=== PATIENT | female | born 1980 | race Two or more races ===

== ENCOUNTER 2020-07-28 17:42 | Emergency (ER) | payer MEDICAID ==
[~2020-07-28] VITALS: Ht 162.6 cm; Wt 54.4 kg
--- NOTE | 2020-07-28 18:10 | NUR ---
[id number], FROM [place], C/O VAGINAL BLEEDING, 14 WEEKS . PATIENT A/OX4, MOANING, BREATHING EVEN AND UNLABORED, NO SOB NOTED, UNABLE TO GIVE A URINE SAMPLE AT THIS TIME. CHANGED INTO A GOWN, ATTACHED TO THE [employer]OKER ROOM MANAGER. NO DISTRESS NOTED. JAJA AT BEDSIDE FOR EVAL.
[2020-07-28 18:25] LABS: BASOPHILS % (AUTO) 0.4 % (0.0-2.0); EOSINOPHILS % (AUTO) 0.7 % (0.0-6.0); HEMATOCRIT 32 % (33-45); HEMOGLOBIN 10.9 g/dL (11.5-14.8); MEAN CORPUSCULAR HGB CONC 34 g/dl (31.0-36.0); MEAN CORPUSCULAR VOLUME 94 fL (82-100); MONOCYTES # (AUTO) 0.5 /CMM (0.1-1.30); MONOCYTES % (AUTO) 4.4 % (2.0-12.0); NEUTROPHILS # (AUTO) 10.5 /CMM (1.8-8.9); NEUTROPHILS % (AUTO) 86.5 % (43.0-81.0); PLATELET COUNT (AUTO) 403 /CMM (150-450); RED BLOOD CELL COUNT(AUTO) 3.46 MIL/uL (4.0-5.2); WHITE BLOOD COUNT (AUTO) 12.2 K/uL (4.3-11.0)
[2020-07-28] MEDS ORDERED: HYDROCODONE/APAP 5/325MG TABLET ONE (18:29)
[2020-07-28] MEDS: IV NS 0.9% 1,000 ML BAG IV ONE ×2 (18:33→19:57)
[2020-07-28] MEDS: HYDROCODONE/APAP 5/325MG TABLET PO ONE (18:33)
--- NOTE | 2020-07-28 19:11 | NUR ---
JAJA DAVIS AT BEDSIDE FOR RECTAL EXAM. OCCULT BLOOD SENT.
--- NOTE | 2020-07-28 19:30 | NUR ---
ADDENDUM: Intravenous End Time Documentation: Normal saline 1 liter (IV-WO) : start time:1929 pm ; end time: 2025 pm : IV site: [facility] PIV # [id number] Port # 1
--- NOTE | 2020-07-28 19:30 | NUR ---
ULTRASOUND AT BEDSIDE
--- NOTE | 2020-07-28 19:37 | NUR ---
PT UNABLE TO PROVIDE URINE SAMPLE. SUSAN MURPHY MADE AWARE
[2020-07-28 20:07] LABS: OCCULT BLOOD STOOL NEGATIVE (NEGATIVE)
[2020-07-28 20:18] LABS: CALCIUM, SERUM 8.5 mg/dL (8.5-10.1); CREATININE 0.5 mg/dL (0.6-1.3); POTASSIUM 3.5 mmol/L (3.5-5.1)
[2020-07-28 20:24] LABS: ALBUMIN 2.5 g/dL (3.4-5.0); BILIRUBIN,DIRECT 0.1 mg/dL (0.0-0.2); BILIRUBIN,TOTAL 0.2 mg/dL (0.2-1.0); TOTAL PROTEIN, SERUM 6.8 g/dL (6.4-8.2)
--- NOTE | 2020-07-28 21:11 | NUR ---
SUSAN MURPHY SPEAKING WITH DR. RINALDI
--- NOTE | 2020-07-28 21:26 | NUR ---
IV removed. Catheter intact and site benign. Pressure and 4x4 applied to site. No bleeding noted.
--- NOTE | 2020-07-28 21:26 | NUR ---
Patient discharged to home in stable condition. Written and verbal after care instructions given. Patient verbalizes understanding of instruction and RX. PT ambulated with steady gait, vss.
[2020-07-28 21:28] VITALS: BP 111/62
== END 2020-07-28 21:28 | disposition home or self-care (01) ==
LOC: ER 17:50
DX: O26.892 Other specified pregnancy related conditions, second trimester (principal); O99.012 Anemia complicating pregnancy, second trimester; Z59.0 Homelessness; Z3A.15 15 weeks gestation of pregnancy
CPT/HCPCS: 36415; 76856; 80048; 80076; 82272; 83690; 84702; 85025; 85730; 96360; 96361; 99284; J7030 ×2